=== PATIENT | female | born 1995 | race Caucasian/White ===

== ENCOUNTER 2018-09-25 15:48 | Outpatient (CLI) | payer BC, MEDICAID ==
[~2018-09-25] VITALS: Ht 162.6 cm; Wt 79.1 kg
--- NOTE | 2018-09-25 15:50 | NUR ---
Pt arrives on unit ambulatory with mother. States leaking of fluid with three large gushes that began at 0700. Denies regular ctx and vaginal bleeding. Reports GFM. Changed into clean gown. EFM and toco applied. VSS. Amniotest negative. SVE closed. No fluid noted on glove. Admission assessment completed. Dr. Guy notified. See physician notification. Pt updated on POC. Safety reviewed. Bed locked in low position. Call light within reach.
[2018-09-25] MEDS ORDERED: PRENATAL MVI (15:58)
--- NOTE | 2018-09-25 16:37 | NUR ---
1637- EFM and TOCO off. Plan to discharge home explained. Labor precautions and movement counts explained. Questions answered. 1645- Discharge paperwork given and explained. 1650- Pt ambulates off unit in stable condition.
== END 2018-09-25 16:50 | disposition home or self-care (01) ==
LOC: LDRO 15:48 → LDR 15:50 → LDRO 16:50
DX: Z34.93 Encounter for supervision of normal pregnancy, unspecified, third trimester (principal); Z3A.36 36 weeks gestation of pregnancy
CPT/HCPCS: OP

== ENCOUNTER 2018-10-18 06:26 | Inpatient (IN) | payer BC, MEDICAID ==
[2018-10-18] VITALS (22 sets, daily range): BP systolic 101–137; BP diastolic 53–84; PULSE 70–102; TEMP 97.8–99
[~2018-10-18] VITALS: Ht 157.5 cm; Wt 80.5 kg
[~2018-10-18 06:26] MED LIST: PRENATAL MVI
--- NOTE | 2018-10-18 06:35 | NUR ---
0635-G1L0 39.[address] SHEN AMBULATORY TO LR3 WITH COMPLAINT OF CONTRACTIONS SINCE 0330 EVERY 2-3 MIN GETTING STRONGER. DENIES LOF OR VB. REPORTS GOOD FM. ASSISTED INTO GOWN AND ON EFM. SVE 3-/-3 WITH BLOODY SHOW. CONTRACTIONS PALPATE FIRM. VSS. FHR REACTIVE. ASSESSMENT COMPLETE. UPDATED ON PLAN OF CARE. DR. SHEN NOTIFIED. AWAITING MD TO COME EVALUATE PATIENT ON UNIT. 0800-DR. SHEN TO UNIT. REVIEWS FHR MONITOR. IN TO DISCUSS PLAN OF CARE WITH PATIENT. SVE BY /-2, AROM BY CLEAR FLUID NOTED. 0820-IV TO RIGHT HAND, BLOOD COLLECTED AND SENT TO LAB PER ORDERS. LR INFUSING SEE EMAR.
[2018-10-18] MEDS ORDERED: PRILOSEC 20MG20 MG PO (06:57)
[2018-10-18 08:46] LABS: BASO % 0.2 % (0.0-2.0); EOS % 0.2 % (0-4.0); GRAN # 13.1 (1.4-6.5); GRAN % 82.6 % (42.2-75.2); HEMATOCRIT 37.4 % (37.0-47.0); LYMPH # 1.5 (1.2-3.4); LYMPH % 9.4 % (20.0-51.0); MEAN CELL VOLUME 87 fl (80.0-100.0); MEAN CORPUSCULAR HEMOGLOBIN 28 pg (27.0-31.0); MEAN CORPUSCULAR HGB CONC 32 g/dl (33.0-37.0); MEAN PLATELET VOLUME 14.1 fl (7.4-10.4); MONO % 6.6 % (1.7-9.3); PLATELET COUNT 148 K/mm3 (130-400); RED BLOOD COUNT 4.29 M/mm3 (4.10-5.30); REDCELL DISTRIBUTION WIDTH-CV 13.6 % (11.5-14.5)
--- NOTE | 2018-10-18 09:45 | NUR ---
SITTING UP FOR EPIDURAL. INDETERMINITE BASELINE. AUDIBLE HEART TONES
--- NOTE | 2018-10-18 09:47 | NUR ---
test dose by gabino betancourt at this time
--- NOTE | 2018-10-18 10:54 | NUR ---
BY DR SHEN AT THIS TIME. VIABLE MALE. TO MOTHERS CHEST. MOTHER OF PATIENT CUT CORD. TO CARE OF ELLIE Peralta RN. PLACENTA EXPRESSED AT 1058. PITOCIN AT 333 MLS/ HR. DR SHEN REPAIRED 2ND DEGREE LACERATION. ICE PACK TO PERINEUM. RECOVERY STARTED AT 1115.
[2018-10-19 03:25] VITALS: BP 105/59; PULSE 77; TEMP 98.3
[2018-10-19 07:56] VITALS: BP 100/69; PULSE 86; TEMP 98.1
[2018-10-19] MEDS ORDERED: IBU600 MG PO (11:12)
== END 2018-10-19 13:25 | disposition home or self-care (01) | DRG 807 ==
LOC: LDRO 06:26 → LDR 06:35 → LDRO 08:09 → LDR 08:10 → OB 08:10
PROVIDERS: ADMIT Obstetrics & Gynecology
PROC: 10E0XZZ Delivery of Products of Conception, External Approach (ICD-10-PCS; principal; 2018-10-18)
PROC: 0KQM0ZZ Repair Perineum Muscle, Open Approach (ICD-10-PCS; 2018-10-18)
PROC: 10907ZC Drainage of Amniotic Fluid, Therapeutic from Products of Conception, Via Natural or Artificial Opening (ICD-10-PCS; 2018-10-18)
DX: O69.81X0 Labor and delivery complicated by cord around neck, without compression, not applicable or unspecified (principal); Z37.0 Single live birth; O70.1 Second degree perineal laceration during delivery; Z3A.39 39 weeks gestation of pregnancy
CPT/HCPCS: J2590; J2795; J7120